=== PATIENT | male | born 1940 | race Caucasian/White ===

== ENCOUNTER 2019-02-28 14:46 | Inpatient (IN) ==
[2019-02-28] MEDS ORDERED: 0.9 % Sodium Chloride 1,000 ML IVC ONE ×2 (15:02)
[2019-02-28] MEDS ORDERED: 0.9 % Sodium Chloride 1,000 ML ONE (15:02)
[2019-02-28] MEDS ORDERED: Pantoprazole 40 MG VIAL IVP ONE (15:02)
[2019-02-28] MEDS ORDERED: Isovue-370 500 ML BOTTLE IVP ONE (15:02)
[2019-02-28] MEDS ORDERED: Ondansetron 4 MG/2 ML VIAL IVP ONE ×3 (15:03→21:44)
[2019-02-28 15:30] LABS: Prothrombin Time 11.3 Seconds (9.4-12.1)
[2019-02-28 15:48] LABS: Albumin/Globulin Ratio 1.3 (1.1-2.2); Bilirubin,Total 0.5 mg/dL (0.3-1.0); Calcium 11.7 mg/dL (8.6-10.3); Globulin 3.8 g/dL (2.4-3.5); Magnesium 2.7 mg/dL (1.6-2.6); Potassium 3.7 mEq/L (3.5-5.1); Total Protein 8.8 g/dL (6.4-8.9); Troponin I 0.03 ng/mL (< 0.04)
[2019-02-28] MEDS ORDERED: *HR* FentaNYL (PF) 100 MCG/2 ML VIAL IVP ONE (16:20)
[2019-02-28] MEDS ORDERED: Aspirin 325 MG TABLET PO ONE (16:22)
[2019-02-28 16:26] LABS: Basophils % 0.2 %; Eosinophils % 0.2 %; Hemoglobin 16.4 g/dL (12.9-16.9); Immature Granulocytes % 0.3 % (0-4); Lymphocytes # 0.6 K/mcL (0.6-4.6); Lymphocytes % 4.8 %; Mean Corpuscular HGB Conc 34.2 g/dL (31.6-35.5); Mean Corpuscular Hemoglobin 30.5 pg (28.0-33.3); Mean Corpuscular Volume 89.4 fL (83.0-100.0); Monocytes # 0.8 K/mcL (0.0-1.3); Monocytes % 6.5 %; Neutrophils # 10.3 K/mcL (1.6-8.9); Platelet Count 229 K/mcL (140-400); Red Blood Count 5.37 M/mcL (4.19-5.50); Red Cell Distribution Width 12.7 % (11.5-14.5); White Blood Count 11.7 K/mcL (4.3-11.1)
[2019-02-28] MEDS ORDERED: *HR* HYDROmorphone (PF) 1 MG/ML SYRINGE IVP ONE (18:53)
[2019-02-28] MEDS ORDERED: Acetaminophen 325 MG TABLET PO ONE (21:45)
[2019-02-28] MEDS ORDERED: Naloxone 0.4 MG/ML INJ IVP PRN (22:06)
[2019-02-28] MEDS ORDERED: Ondansetron 4 MG/2 ML VIAL IVP PRN (22:06)
[2019-02-28] MEDS ORDERED: Ringers Solution, Lactated 1,000 ML IVC SCH (22:15)
[2019-03-01 00:19] LABS: Basophils % 0.2 %; Lymphocytes # 0.3 K/mcL (0.6-4.6); Lymphocytes % 6.1 %; Mean Corpuscular Hemoglobin 30.8 pg (28.0-33.3); Mean Corpuscular Volume 88.1 fL (83.0-100.0); Mean Platelet Volume 10.9 fL (9.4-12.4); Monocytes # 0.4 K/mcL (0.0-1.3); Monocytes % 8.6 %; Neutrophils # 3.7 K/mcL (1.6-8.9); Platelet Count 180 K/mcL (140-400); Red Blood Count 4.77 M/mcL (4.19-5.50); Red Cell Distribution Width 12.7 % (11.5-14.5); Segmented Neutrophils % 85.1 %
[2019-03-01 00:21] LABS: Hemoglobin 14.7 g/dL (12.9-16.9); White Blood Count 4.4 K/mcL (4.3-11.1)
[2019-03-01 00:38] LABS: Albumin 3.8 g/dL (3.5-5.7); Albumin/Globulin Ratio 1.4 (1.1-2.2); Bilirubin,Total 0.4 mg/dL (0.3-1.0); Calcium 9.1 mg/dL (8.6-10.3); Globulin 2.7 g/dL (2.4-3.5); Potassium 4.1 mEq/L (3.5-5.1); Total Protein 6.5 g/dL (6.4-8.9)
[2019-03-01] MEDS: Pantoprazole 40 MG VIAL IVP SCH ×2 (05:41→17:43)
[2019-03-02 04:55] LABS: Hematocrit 39.4 % (37.5-50.1); Mean Corpuscular Hemoglobin 30.3 pg (28.0-33.3); Mean Corpuscular Volume 91.8 fL (83.0-100.0); Mean Platelet Volume 10.7 fL (9.4-12.4); Platelet Count 159 K/mcL (140-400); Red Blood Count 4.29 M/mcL (4.19-5.50); Red Cell Distribution Width 12.5 % (11.5-14.5); White Blood Count 5.7 K/mcL (4.3-11.1)
[2019-03-02 05:14] LABS: Calcium 8.8 mg/dL (8.6-10.3); Potassium 4.1 mEq/L (3.5-5.1)
[2019-03-02] MEDS: Pantoprazole 40 MG VIAL IVP SCH ×2 (05:38→17:54)
[2019-03-02] MEDS: Ringers Solution, Lactated 1,000 ML IVC SCH ×2 (05:57→17:54)
[2019-03-02] MEDS ORDERED: Ondansetron 4 MG/2 ML VIAL IVP ONE ×2 (08:44→20:52)
[2019-03-02] MEDS ORDERED: Clindamycin 600 MG/50 ML 600 MG/50 ML IV.SOLN IVPB ONE (17:59)
[2019-03-02] MEDS ORDERED: *HR* FentaNYL (PF) 100 MCG/2 ML VIAL ONE ×2 (20:51→21:42)
[2019-03-02] MEDS ORDERED: *HR* Propofol 200 MG/20 ML VIAL IVP ONE (20:51)
[2019-03-02] MEDS ORDERED: Ketorolac 30 MG/ML VIAL IVP ONE (20:52)
[2019-03-02] MEDS ORDERED: *HR* Succinylcholine 200 MG/10 ML VIAL IVP ONE (20:54)
[2019-03-02] MEDS ORDERED: Dexamethasone 4 MG/ML VIAL ONE ×2 (20:54→22:22)
[2019-03-02] MEDS ORDERED: *HR* Rocuronium Bromide 50 MG/5 ML VIAL ONE (20:54)
[2019-03-02] MEDS ORDERED: Lidocaine -MPF 4% 5 ML AMPUL ONE (20:55)
[2019-03-02] MEDS ORDERED: *HR* Midazolam HCl 2 MG/2 ML VIAL ONE (21:03)
[2019-03-02] MEDS ORDERED: Acetaminophen IV 1,000 MG/100 ML INFUS..BTL ONE (21:34)
[2019-03-02] MEDS ORDERED: Ondansetron 4 MG/2 ML VIAL ONE (22:22)
[2019-03-02] MEDS: *HR* HYDROmorphone (PF) 1 MG/ML SYRINGE IVP PRN ×3 (23:41→23:57)
[2019-03-02] MEDS: *HR* Promethazine 25 MG/ML VIAL IVP PRN (23:48)
[2019-03-03] MEDS: *HR* Promethazine 25 MG/ML VIAL IVP PRN
[2019-03-03] MEDS: *HR* HYDROmorphone (PF) 1 MG/ML SYRINGE IVP PRN (00:09)
[2019-03-03] MEDS ORDERED: Naloxone 0.4 MG/ML INJ IVP PRN (00:46)
[2019-03-03] MEDS: Ringers Solution, Lactated 1,000 ML IVC SCH (04:37)
[2019-03-03 05:22] LABS: Basophils % 0.1 %; Hematocrit 43.7 % (37.5-50.1); Hematocrit 44.2 % (37.5-50.1); Hemoglobin 14.3 g/dL (12.9-16.9); Hemoglobin 14.6 g/dL (12.9-16.9); Immature Granulocytes % 0.3 % (0-4); Lymphocytes # 0.4 K/mcL (0.6-4.6); Lymphocytes % 2.6 %; Mean Corpuscular HGB Conc 32.4 g/dL (31.6-35.5); Mean Corpuscular HGB Conc 33.4 g/dL (31.6-35.5); Mean Corpuscular Hemoglobin 30.5 pg (28.0-33.3); Mean Corpuscular Hemoglobin 30.7 pg (28.0-33.3); Mean Corpuscular Volume 91.4 fL (83.0-100.0); Mean Corpuscular Volume 94.8 fL (83.0-100.0); Mean Platelet Volume 11.2 fL (9.4-12.4); Monocytes # 1.3 K/mcL (0.0-1.3); Monocytes % 8.9 %; Platelet Count 186 K/mcL (140-400); Platelet Count 191 K/mcL (140-400); Red Blood Count 4.66 M/mcL (4.19-5.50); Red Blood Count 4.78 M/mcL (4.19-5.50); Red Cell Distribution Width 12.6 % (11.5-14.5); Segmented Neutrophils % 88.1 %; White Blood Count 13.5 K/mcL (4.3-11.1)
[2019-03-03 05:30] LABS: Neutrophils # 12.3 K/mcL (1.6-8.9)
[2019-03-03 05:40] LABS: Calcium 8.8 mg/dL (8.6-10.3); Phosphorous 4.8 mg/dL (2.7-4.5); Potassium 4.2 mEq/L (3.5-5.1)
[2019-03-03] MEDS: Ondansetron 4 MG/2 ML VIAL IVP PRN ×2 (05:40→23:05)
[2019-03-03] MEDS: Acetaminophen IV 1,000 MG/100 ML INFUS..BTL IVPB SCH ×4 (05:40→23:06)
[2019-03-03] MEDS: Pantoprazole 40 MG VIAL IVP SCH ×2 (05:40→16:14)
[2019-03-03] MEDS: Clindamycin 600 MG/50 ML 600 MG/50 ML IV.SOLN IVPB SCH ×3 (08:43→23:05)
[2019-03-04] MEDS: Ringers Solution, Lactated 1,000 ML IVC SCH ×5 (00:46→15:28)
[2019-03-04 04:53] LABS: Basophils % 0.2 %; Hematocrit 39.8 % (37.5-50.1); Immature Granulocytes % 0.3 % (0-4); Lymphocytes # 0.6 K/mcL (0.6-4.6); Lymphocytes % 4.7 %; Mean Corpuscular HGB Conc 32.7 g/dL (31.6-35.5); Mean Corpuscular Hemoglobin 29.9 pg (28.0-33.3); Mean Corpuscular Volume 91.5 fL (83.0-100.0); Mean Platelet Volume 11.6 fL (9.4-12.4); Monocytes # 0.6 K/mcL (0.0-1.3); Monocytes % 4.7 %; Neutrophils # 10.7 K/mcL (1.6-8.9); Platelet Count 166 K/mcL (140-400); Red Blood Count 4.35 M/mcL (4.19-5.50); Red Cell Distribution Width 12.9 % (11.5-14.5); Segmented Neutrophils % 90.1 %; White Blood Count 11.9 K/mcL (4.3-11.1)
[2019-03-04] MEDS: Pantoprazole 40 MG VIAL IVP SCH ×2 (04:59→17:05)
[2019-03-04] MEDS: Acetaminophen IV 1,000 MG/100 ML INFUS..BTL IVPB SCH ×3 (04:59→17:06)
[2019-03-04] MEDS: *HR* Heparin 5,000 UNIT/ML VIAL SQ SCH ×2 (05:00→17:05)
[2019-03-04 05:12] LABS: Calcium 8.8 mg/dL (8.6-10.3); Magnesium 2.1 mg/dL (1.6-2.6); Phosphorous 3.1 mg/dL (2.7-4.5); Potassium 4.2 mEq/L (3.5-5.1)
[2019-03-04 05:48] LABS: Platelet Estimate Normal (Normal); Reactive Lymphocytes Present (Not Present)
[2019-03-04] MEDS: Clindamycin 600 MG/50 ML 600 MG/50 ML IV.SOLN IVPB SCH ×3 (08:41→23:10)
[2019-03-04] MEDS: Ondansetron 4 MG/2 ML VIAL IVP PRN ×2 (09:40→20:02)
[2019-03-04] MEDS ORDERED: Prochlorperazine 10 MG/2 ML VIAL IVP PRN (10:48)
[2019-03-05] MEDS: Acetaminophen IV 1,000 MG/100 ML INFUS..BTL IVPB SCH ×4 (02:16→17:21)
[2019-03-05 03:02] LABS: Basophils % 0.1 %; Hematocrit 31.3 % (37.5-50.1); Immature Granulocytes % 1.7 % (0-4); Lymphocytes # 0.4 K/mcL (0.6-4.6); Lymphocytes % 4.3 %; Mean Corpuscular HGB Conc 32.9 g/dL (31.6-35.5); Mean Corpuscular Hemoglobin 30.1 pg (28.0-33.3); Mean Corpuscular Volume 91.5 fL (83.0-100.0); Mean Platelet Volume 11.3 fL (9.4-12.4); Monocytes # 0.4 K/mcL (0.0-1.3); Neutrophils # 8.1 K/mcL (1.6-8.9); Platelet Count 130 K/mcL (140-400); Red Blood Count 3.42 M/mcL (4.19-5.50); Red Cell Distribution Width 13.2 % (11.5-14.5); Segmented Neutrophils % 89.9 %
[2019-03-05 03:07] LABS: Hemoglobin 10.3 g/dL (12.9-16.9)
[2019-03-05 03:21] LABS: Calcium 8.3 mg/dL (8.6-10.3); Magnesium 2.1 mg/dL (1.6-2.6); Phosphorous 2.1 mg/dL (2.7-4.5); Potassium 3.9 mEq/L (3.5-5.1)
[2019-03-05 05:12] LABS: Platelet Estimate Slight Decrease (Normal)
[2019-03-05] MEDS: Pantoprazole 40 MG VIAL IVP SCH ×2 (06:25→17:18)
[2019-03-05] MEDS: *HR* Heparin 5,000 UNIT/ML VIAL SQ SCH (06:25)
[2019-03-05] MEDS: Ringers Solution, Lactated 1,000 ML IVC SCH ×4 (08:04→19:59)
[2019-03-05] MEDS: Clindamycin 600 MG/50 ML 600 MG/50 ML IV.SOLN IVPB SCH ×2 (08:08→16:29)
[2019-03-05 10:04] LABS: Hematocrit 29.8 % (37.5-50.1); Hemoglobin 9.8 g/dL (12.9-16.9)
[2019-03-05] MEDS ORDERED: D10% in Water 500 ML IVC PRN (11:35)
[2019-03-05] MEDS ORDERED: D5% in Water 1,000 ML IVC PRN (14:45)
[2019-03-05] MEDS ORDERED: *HR* Dextrose 50 % in Water (Syg) 50 ML SYRINGE IVP PRN (14:45)
[2019-03-05] MEDS ORDERED: Dextrose Gel 15 GM/37.5 ML TUBE PO PRN ×2 (14:45)
[2019-03-05] MEDS ORDERED: Lidocaine -MPF 1% 5 ML AMPUL INFILT ONE (14:47)
[2019-03-05 16:12] LABS: Hematocrit 32.4 % (37.5-50.1); Hemoglobin 10.3 g/dL (12.9-16.9)
[2019-03-05] MEDS ORDERED: Clinimix E 5%-15% SOLUTION 2,000 ML with MVI, adult with vitamin K 10 ML IVC SCH (17:00)
[2019-03-05] MEDS: Insulin LISPRO 300 UNITS/3 ML VIAL SQ SCH (18:24)
[2019-03-05 19:58] LABS: Bilirubin,Urine Negative (Negative); Blood,Urine Negative (Negative); Clarity,Urine Clear (Clear); Color,Urine Yellow (Yellow); Glucose,Urine (UA) Normal (Normal); Ketones,Urine Negative (Negative); Leukocyte Esterase,Urine Negative (Negative); Nitrite,Urine Negative (Negative); Protein,Urine 100 mg/dL (Neg-Trace); Specific Gravity,Urine 1.029 (1.010-1.025); Urobilinogen,Urine Normal (Normal)
[2019-03-05] MEDS: Ondansetron 4 MG/2 ML VIAL IVP PRN (19:58)
[2019-03-05 20:00] LABS: Bacteria,Urine None Seen per hpf (None-Few); Hyaline Casts,Urine None Seen per lpf (None-Few); Squamous Epithelial Cell,Urine Many per lpf (None-Few)
[2019-03-06] MEDS ORDERED: Albuterol 2.5 MG/3 ML NEBULIZER IH ONE (00:08)
[2019-03-06] MEDS: Insulin LISPRO 300 UNITS/3 ML VIAL SQ SCH ×7 (00:21→20:31)
[2019-03-06] MEDS: Clindamycin 600 MG/50 ML 600 MG/50 ML IV.SOLN IVPB SCH ×3 (00:29→16:25)
[2019-03-06] MEDS: Acetaminophen IV 1,000 MG/100 ML INFUS..BTL IVPB SCH ×4 (00:29→17:45)
[2019-03-06 03:41] LABS: Basophils % 0.2 %; Eosinophils % 0.3 %; Hematocrit 28.5 % (37.5-50.1); Hemoglobin 9.4 g/dL (12.9-16.9); Immature Granulocytes % 1.9 % (0-4); Lymphocytes # 0.4 K/mcL (0.6-4.6); Lymphocytes % 4.7 %; Mean Corpuscular Hemoglobin 30.4 pg (28.0-33.3); Mean Corpuscular Volume 92.2 fL (83.0-100.0); Mean Platelet Volume 11.4 fL (9.4-12.4); Monocytes # 0.5 K/mcL (0.0-1.3); Monocytes % 5.9 %; Neutrophils # 7.7 K/mcL (1.6-8.9); Nucleated Red Blood Cells 0.2 /100 WBC (0); Platelet Count 128 K/mcL (140-400); Red Blood Count 3.09 M/mcL (4.19-5.50); Red Cell Distribution Width 13.3 % (11.5-14.5); White Blood Count 8.9 K/mcL (4.3-11.1)
[2019-03-06] MEDS ORDERED: *HR* Metoprolol 5 MG/5 ML VIAL IVP ONE (03:41)
[2019-03-06 03:47] LABS: BUN/Creatinine Ratio 21 (6-26); Blood Urea Nitrogen 26 mg/dL (8-23); Calcium 8.4 mg/dL (8.6-10.3); Carbon Dioxide 25 mEq/L (23-29); Chloride 107 mEq/L (98-107); Glucose 137 mg/dL (70-105); Osmolality,Calculated 293 (280-300); Phosphorous 2.4 mg/dL (2.7-4.5); Potassium 3.7 mEq/L (3.5-5.1); Sodium 138 mEq/L (136-145); eGFR For African Americans > 60 (> 60); eGFR For Non-African Americans 58 (> 60)
[2019-03-06 04:47] LABS: Platelet Estimate Slight Decrease (Normal); Polychromasia 1+ (Not Present)
[2019-03-06] MEDS: Ondansetron 4 MG/2 ML VIAL IVP PRN (05:26)
[2019-03-06] MEDS: Pantoprazole 40 MG VIAL IVP SCH ×2 (05:26→17:17)
[2019-03-06] MEDS: Ringers Solution, Lactated 1,000 ML IVC SCH (10:48)
[2019-03-06] MEDS ORDERED: Perflutren Lipid Microsphere 1.3 ML in 0.9 % Sodium Chloride 8.7 ML IVP ONE (12:53)
[2019-03-06 14:03] LABS: Hematocrit 27.7 % (37.5-50.1)
[2019-03-06 14:04] LABS: Hemoglobin 9.1 g/dL (12.9-16.9)
[2019-03-06] MEDS ORDERED: Ringers Solution, Lactated 250 ML IVC ONE ×2 (15:18→15:45)
[2019-03-06] MEDS ORDERED: Clinimix E 5%-15% SOLUTION 2,000 ML with MVI, adult with vitamin K 10 ML IVC SCH (17:00)
[2019-03-07] MEDS: Acetaminophen IV 1,000 MG/100 ML INFUS..BTL IVPB SCH ×4 (01:16→18:10)
[2019-03-07] MEDS: Insulin LISPRO 300 UNITS/3 ML VIAL SQ SCH ×6 (01:16→20:25)
[2019-03-07] MEDS: Clindamycin 600 MG/50 ML 600 MG/50 ML IV.SOLN IVPB SCH ×3 (01:45→16:28)
[2019-03-07] MEDS: Ondansetron 4 MG/2 ML VIAL IVP PRN ×2 (02:26→20:19)
[2019-03-07 02:47] LABS: Troponin I 0.09 ng/mL (< 0.04)
[2019-03-07 04:18] LABS: Hematocrit 26.2 % (37.5-50.1); Hemoglobin 8.6 g/dL (12.9-16.9); Mean Corpuscular HGB Conc 32.8 g/dL (31.6-35.5); Mean Corpuscular Volume 91.3 fL (83.0-100.0); Mean Platelet Volume 10.9 fL (9.4-12.4); Platelet Count 141 K/mcL (140-400); Red Blood Count 2.87 M/mcL (4.19-5.50); Red Cell Distribution Width 13.4 % (11.5-14.5); White Blood Count 11.9 K/mcL (4.3-11.1)
[2019-03-07 04:33] LABS: BUN/Creatinine Ratio 21 (6-26); Blood Urea Nitrogen 24 mg/dL (8-23); Calcium 8.4 mg/dL (8.6-10.3); Carbon Dioxide 26 mEq/L (23-29); Chloride 106 mEq/L (98-107); Glucose 164 mg/dL (70-105); Osmolality,Calculated 298 (280-300); Phosphorous 2.7 mg/dL (2.7-4.5); Potassium 3.3 mEq/L (3.5-5.1); Sodium 140 mEq/L (136-145); eGFR For African Americans > 60 (> 60); eGFR For Non-African Americans > 60 (> 60)
[2019-03-07 04:49] LABS: Lymphocytes # 0.5 K/mcL (0.6-4.6); Monocytes # 0.5 K/mcL (0.0-1.3); Platelet Estimate Normal (Normal)
[2019-03-07] MEDS: Pantoprazole 40 MG VIAL IVP SCH ×2 (05:19→18:04)
[2019-03-07 06:50] LABS: Chol/HDL Ratio 9.5 (0-4.9); Cholesterol 105 mg/dL (< 200); HDL Cholesterol 11 mg/dL (40-59); Triglycerides 741 mg/dL (< 150)
[2019-03-07] MEDS ORDERED: Potassium Chloride 20 MEQ, Lidocaine 1% 2 ML in 0.9 % Sodium Chloride 250 ML IVPB ONE (08:34)
[2019-03-07] MEDS: Metoclopramide 20 MG in 0.9 % Sodium Chloride 50 ML IVPB SCH ×2 (09:14→16:28)
[2019-03-07 10:26] LABS: Hemoglobin 7.6 g/dL (12.9-16.9)
[2019-03-07] MEDS ORDERED: 0.9 % Sodium Chloride 250 ML IVC SCH (11:00)
[2019-03-07] MEDS: Ringers Solution, Lactated 1,000 ML IVC SCH (11:47)
[2019-03-07] MEDS ORDERED: Clinimix E 5%-15% SOLUTION 2,000 ML with MVI, adult with vitamin K 10 ML IVC SCH (17:00)
[2019-03-07] MEDS: *HR* Metoprolol 5 MG/5 ML VIAL IVP SCH (18:05)
[2019-03-07 18:22] LABS: Hematocrit 30.9 % (37.5-50.1)
[2019-03-07 18:24] LABS: Hemoglobin 10.6 g/dL (12.9-16.9)
[2019-03-07] MEDS ORDERED: Furosemide 20 MG/2 ML VIAL IVP ONE (19:22)
[2019-03-08] MEDS: Insulin LISPRO 300 UNITS/3 ML VIAL SQ SCH ×6 (00:02→20:29)
[2019-03-08] MEDS: Metoclopramide 20 MG in 0.9 % Sodium Chloride 50 ML IVPB SCH ×3 (00:06→17:03)
[2019-03-08] MEDS: *HR* Metoprolol 5 MG/5 ML VIAL IVP SCH ×4 (00:08→17:04)
[2019-03-08] MEDS: Clindamycin 600 MG/50 ML 600 MG/50 ML IV.SOLN IVPB SCH ×3 (00:09→15:47)
[2019-03-08] MEDS: Acetaminophen IV 1,000 MG/100 ML INFUS..BTL IVPB SCH ×5 (00:09→23:55)
[2019-03-08] MEDS ORDERED: Prochlorperazine 10 MG/2 ML VIAL IVP ONE (01:00)
[2019-03-08] MEDS: Pantoprazole 40 MG VIAL IVP SCH ×2 (05:57→17:04)
[2019-03-08] MEDS: Ondansetron 4 MG/2 ML VIAL IVP PRN ×2 (06:11→23:53)
[2019-03-08] MEDS: Ringers Solution, Lactated 1,000 ML IVC SCH (08:44)
[2019-03-08 09:24] LABS: Basophils % 0.2 %; Eosinophils % 0.2 %; Hematocrit 31.7 % (37.5-50.1); Hemoglobin 10.2 g/dL (12.9-16.9); Immature Granulocytes % 4.5 % (0-4); Lymphocytes # 0.4 K/mcL (0.6-4.6); Lymphocytes % 3.2 %; Mean Corpuscular HGB Conc 32.2 g/dL (31.6-35.5); Mean Corpuscular Hemoglobin 30.1 pg (28.0-33.3); Mean Corpuscular Volume 93.5 fL (83.0-100.0); Mean Platelet Volume 11.2 fL (9.4-12.4); Monocytes # 0.9 K/mcL (0.0-1.3); Monocytes % 6.8 %; Neutrophils # 11.1 K/mcL (1.6-8.9); Platelet Count 152 K/mcL (140-400); Red Blood Count 3.39 M/mcL (4.19-5.50); Segmented Neutrophils % 85.1 %
[2019-03-08 09:47] LABS: BUN/Creatinine Ratio 21 (6-26); Blood Urea Nitrogen 20 mg/dL (8-23); Calcium 8.7 mg/dL (8.6-10.3); Carbon Dioxide 27 mEq/L (23-29); Chloride 104 mEq/L (98-107); Glucose 163 mg/dL (70-105); Osmolality,Calculated 298 (280-300); Phosphorous 2.6 mg/dL (2.7-4.5); Potassium 3.3 mEq/L (3.5-5.1); Sodium 141 mEq/L (136-145); eGFR For African Americans > 60 (> 60); eGFR For Non-African Americans > 60 (> 60)
[2019-03-08 09:56] LABS: Platelet Estimate Normal (Normal)
[2019-03-08 10:07] LABS: Estimated Average Glucose 128 mg/dl
[2019-03-08] MEDS ORDERED: Potassium Chloride 40 MEQ, Lidocaine 1% 2 ML in 0.9 % Sodium Chloride 500 ML IVPB ONE (10:12)
[2019-03-08] MEDS ORDERED: *HR* Propofol 200 MG/20 ML VIAL IVP ONE (13:13)
[2019-03-08] MEDS ORDERED: Lidocaine -MPF 2% 2 ML VIAL ONE (13:13)
[2019-03-08] MEDS ORDERED: Lidocaine -MPF 4% 5 ML AMPUL ONE (14:12)
[2019-03-08] MEDS ORDERED: Dexamethasone 4 MG/ML VIAL ONE (14:35)
[2019-03-08] MEDS ORDERED: Ondansetron 4 MG/2 ML VIAL ONE (14:35)
[2019-03-08] MEDS ORDERED: Clinimix E 5%-15% SOLUTION 2,000 ML with MVI, adult with vitamin K 10 ML IVC SCH (17:00)
[2019-03-08] MEDS: *HR* Heparin 5,000 UNIT/ML VIAL SQ SCH (17:04)
[2019-03-08] MEDS ORDERED: Furosemide 20 MG/2 ML VIAL IVP ONE (17:20)
[2019-03-09] MEDS: Clindamycin 600 MG/50 ML 600 MG/50 ML IV.SOLN IVPB SCH ×3 (00:06→16:48)
[2019-03-09] MEDS: *HR* Metoprolol 5 MG/5 ML VIAL IVP SCH ×4 (00:07→16:51)
[2019-03-09] MEDS: Insulin LISPRO 300 UNITS/3 ML VIAL SQ SCH ×6 (00:07→21:08)
[2019-03-09 04:46] LABS: Basophils % 0.3 %; Eosinophils # 0.1 K/mcL (0.0-0.6); Eosinophils % 0.4 %; Hematocrit 30.1 % (37.5-50.1); Hemoglobin 9.9 g/dL (12.9-16.9); Lymphocytes # 0.5 K/mcL (0.6-4.6); Lymphocytes % 3.1 %; Mean Corpuscular HGB Conc 32.9 g/dL (31.6-35.5); Mean Corpuscular Hemoglobin 30.4 pg (28.0-33.3); Mean Corpuscular Volume 92.3 fL (83.0-100.0); Mean Platelet Volume 11.4 fL (9.4-12.4); Monocytes % 6.5 %; Neutrophils # 13.6 K/mcL (1.6-8.9); Platelet Count 166 K/mcL (140-400); Red Blood Count 3.26 M/mcL (4.19-5.50); Red Cell Distribution Width 13.9 % (11.5-14.5); Segmented Neutrophils % 87.7 %; White Blood Count 15.5 K/mcL (4.3-11.1)
[2019-03-09 05:04] LABS: Basophils # 0.1 K/mcL (0.0-0.2)
[2019-03-09 05:07] LABS: BUN/Creatinine Ratio 23 (6-26); Blood Urea Nitrogen 19 mg/dL (8-23); Calcium 8.3 mg/dL (8.6-10.3); Carbon Dioxide 24 mEq/L (23-29); Chloride 106 mEq/L (98-107); Glucose 141 mg/dL (70-105); Magnesium 2.2 mg/dL (1.6-2.6); Osmolality,Calculated 291 (280-300); Phosphorous 2.9 mg/dL (2.7-4.5); Potassium 3.4 mEq/L (3.5-5.1); Sodium 138 mEq/L (136-145); eGFR For African Americans > 60 (> 60); eGFR For Non-African Americans > 60 (> 60)
[2019-03-09] MEDS: Pantoprazole 40 MG VIAL IVP SCH (05:27)
[2019-03-09] MEDS: Acetaminophen IV 1,000 MG/100 ML INFUS..BTL IVPB SCH (05:27)
[2019-03-09] MEDS: *HR* Heparin 5,000 UNIT/ML VIAL SQ SCH ×2 (05:27→16:55)
[2019-03-09 06:30] LABS: Platelet Estimate Normal (Normal)
[2019-03-09] MEDS ORDERED: Furosemide 20 MG/2 ML VIAL IVP ONE (10:42)
[2019-03-09] MEDS ORDERED: Clinimix E 5%-15% SOLUTION 2,000 ML with MVI, adult with vitamin K 10 ML IVC SCH ×2 (11:48→17:00)
[2019-03-09 16:50] LABS: Bilirubin,Urine Negative (Negative); Blood,Urine Negative (Negative); Clarity,Urine Clear (Clear); Color,Urine Yellow (Yellow); Glucose,Urine (UA) Normal (Normal); Ketones,Urine Negative (Negative); Leukocyte Esterase,Urine Negative (Negative); Nitrite,Urine Negative (Negative); Protein,Urine Trace mg/dL (Neg-Trace); Specific Gravity,Urine 1.018 (1.010-1.025); Urobilinogen,Urine Normal (Normal)
[2019-03-10] MEDS: Clindamycin 600 MG/50 ML 600 MG/50 ML IV.SOLN IVPB SCH ×3 (00:38→16:32)
[2019-03-10] MEDS: *HR* Metoprolol 5 MG/5 ML VIAL IVP SCH ×4 (00:39→17:19)
[2019-03-10] MEDS: Insulin LISPRO 300 UNITS/3 ML VIAL SQ SCH ×6 (00:40→19:40)
[2019-03-10 04:29] LABS: Hematocrit 28.8 % (37.5-50.1); Hemoglobin 9.8 g/dL (12.9-16.9); Mean Corpuscular Hemoglobin 30.1 pg (28.0-33.3); Mean Corpuscular Volume 88.3 fL (83.0-100.0); Mean Platelet Volume 11.3 fL (9.4-12.4); Platelet Count 212 K/mcL (140-400); Red Blood Count 3.26 M/mcL (4.19-5.50); Red Cell Distribution Width 13.9 % (11.5-14.5); White Blood Count 18.4 K/mcL (4.3-11.1)
[2019-03-10 04:46] LABS: BUN/Creatinine Ratio 26 (6-26); Blood Urea Nitrogen 22 mg/dL (8-23); Calcium 8.2 mg/dL (8.6-10.3); Carbon Dioxide 26 mEq/L (23-29); Chloride 103 mEq/L (98-107); Glucose 139 mg/dL (70-105); Magnesium 2.1 mg/dL (1.6-2.6); Osmolality,Calculated 292 (280-300); Phosphorous 3.1 mg/dL (2.7-4.5); Potassium 3.5 mEq/L (3.5-5.1); Sodium 138 mEq/L (136-145); eGFR For African Americans > 60 (> 60); eGFR For Non-African Americans > 60 (> 60)
[2019-03-10] MEDS: *HR* Heparin 5,000 UNIT/ML VIAL SQ SCH ×2 (05:06→17:19)
[2019-03-10] MEDS: Pantoprazole 40 MG VIAL IVP SCH ×2 (05:06→08:08)
[2019-03-10 05:16] LABS: Lymphocytes # 1.1 K/mcL (0.6-4.6); Monocytes # 0.4 K/mcL (0.0-1.3); Neutrophils # 16.9 K/mcL (1.6-8.9)
[2019-03-10 05:18] LABS: Platelet Estimate Normal (Normal)
[2019-03-10] MEDS ORDERED: Furosemide 20 MG/2 ML VIAL IVP ONE (08:23)
[2019-03-10] MEDS: Ondansetron 4 MG/2 ML VIAL IVP PRN ×2 (08:58→19:45)
[2019-03-10] MEDS: chlorproMAZINE 25 MG TABLET PO SCH ×2 (14:21→19:41)
[2019-03-10] MEDS ORDERED: Furosemide 40 MG/4 ML VIAL IVP ONE (15:00)
[2019-03-10] MEDS ORDERED: Clinimix E 5%-15% SOLUTION 2,000 ML with MVI, adult with vitamin K 10 ML IVC SCH (17:00)
[2019-03-10] MEDS ORDERED: chlorproMAZINE 25 MG TABLET PO SCH (21:00)
[2019-03-10] MEDS: Acetaminophen 325 MG TABLET PO PRN (22:56)
[2019-03-11] MEDS: Insulin LISPRO 300 UNITS/3 ML VIAL SQ SCH ×6 (00:14→21:53)
[2019-03-11] MEDS: *HR* Heparin 5,000 UNIT/ML VIAL SQ SCH ×2 (05:24→17:49)
[2019-03-11 05:39] LABS: Basophils % 0.1 %; Eosinophils # 0.1 K/mcL (0.0-0.6); Eosinophils % 0.9 %; Hematocrit 19.8 % (37.5-50.1); Hemoglobin 6.3 g/dL (12.9-16.9); Immature Granulocytes % 1.5 % (0-4); Lymphocytes # 0.5 K/mcL (0.6-4.6); Lymphocytes % 3.6 %; Mean Corpuscular HGB Conc 31.8 g/dL (31.6-35.5); Mean Corpuscular Hemoglobin 30.4 pg (28.0-33.3); Mean Corpuscular Volume 95.7 fL (83.0-100.0); Mean Platelet Volume 11.4 fL (9.4-12.4); Monocytes # 0.9 K/mcL (0.0-1.3); Monocytes % 6.6 %; Neutrophils # 12.1 K/mcL (1.6-8.9); Platelet Count 164 K/mcL (140-400); Red Blood Count 2.07 M/mcL (4.19-5.50); Red Cell Distribution Width 14.1 % (11.5-14.5); Segmented Neutrophils % 87.3 %; White Blood Count 13.9 K/mcL (4.3-11.1)
[2019-03-11] MEDS: Acetaminophen 325 MG TABLET PO PRN (05:59)
[2019-03-11 08:16] LABS: Basophils % 0.2 %; Eosinophils # 0.1 K/mcL (0.0-0.6); Eosinophils % 0.6 %; Hematocrit 29.3 % (37.5-50.1); Immature Granulocytes % 1.6 % (0-4); Lymphocytes # 0.5 K/mcL (0.6-4.6); Lymphocytes % 2.9 %; Mean Corpuscular HGB Conc 32.8 g/dL (31.6-35.5); Mean Corpuscular Hemoglobin 29.7 pg (28.0-33.3); Mean Corpuscular Volume 90.7 fL (83.0-100.0); Mean Platelet Volume 11.5 fL (9.4-12.4); Monocytes # 1.3 K/mcL (0.0-1.3); Monocytes % 6.9 %; Neutrophils # 16.5 K/mcL (1.6-8.9); Platelet Count 233 K/mcL (140-400); Red Blood Count 3.23 M/mcL (4.19-5.50); Red Cell Distribution Width 13.8 % (11.5-14.5); Segmented Neutrophils % 87.8 %; White Blood Count 18.8 K/mcL (4.3-11.1)
[2019-03-11 08:18] LABS: Hemoglobin 9.6 g/dL (12.9-16.9)
[2019-03-11 08:43] LABS: BUN/Creatinine Ratio 27 (6-26); Blood Urea Nitrogen 27 mg/dL (8-23); Carbon Dioxide 26 mEq/L (23-29); Chloride 99 mEq/L (98-107); Glucose 160 mg/dL (70-105); Osmolality,Calculated 287 (280-300); Phosphorous 3.3 mg/dL (2.7-4.5); Sodium 134 mEq/L (136-145); eGFR For African Americans > 60 (> 60); eGFR For Non-African Americans > 60 (> 60)
[2019-03-11] MEDS: chlorproMAZINE 25 MG TABLET PO SCH ×2 (09:31→19:52)
[2019-03-11] MEDS ORDERED: Baclofen 10 MG TABLET PO SCH (12:00)
[2019-03-11] MEDS ORDERED: Baclofen 10 MG TABLET PO PRN (12:45)
[2019-03-11] MEDS ORDERED: Clinimix E 5%-15% SOLUTION 2,000 ML with MVI, adult with vitamin K 10 ML IVC SCH (17:00)
[2019-03-12] MEDS: Insulin LISPRO 300 UNITS/3 ML VIAL SQ SCH ×5 (00:23→17:35)
[2019-03-12 03:55] LABS: Hematocrit 27.1 % (37.5-50.1); Hemoglobin 8.8 g/dL (12.9-16.9); Mean Corpuscular HGB Conc 32.5 g/dL (31.6-35.5); Mean Corpuscular Hemoglobin 29.7 pg (28.0-33.3); Mean Corpuscular Volume 91.6 fL (83.0-100.0); Mean Platelet Volume 11.3 fL (9.4-12.4); Platelet Count 305 K/mcL (140-400); Red Blood Count 2.96 M/mcL (4.19-5.50); Red Cell Distribution Width 13.7 % (11.5-14.5); White Blood Count 18.7 K/mcL (4.3-11.1)
[2019-03-12 04:13] LABS: BUN/Creatinine Ratio 28 (6-26); Blood Urea Nitrogen 27 mg/dL (8-23); Carbon Dioxide 25 mEq/L (23-29); Chloride 97 mEq/L (98-107); Glucose 145 mg/dL (70-105); Magnesium 2.1 mg/dL (1.6-2.6); Osmolality,Calculated 278 (280-300); Phosphorous 3.3 mg/dL (2.7-4.5); Sodium 130 mEq/L (136-145); eGFR For African Americans > 60 (> 60); eGFR For Non-African Americans > 60 (> 60)
[2019-03-12] MEDS: *HR* Heparin 5,000 UNIT/ML VIAL SQ SCH ×2 (06:58→17:44)
[2019-03-12] MEDS ORDERED: Isovue-370 500 ML BOTTLE IVP ONE ×2 (07:21)
[2019-03-12] MEDS: chlorproMAZINE 25 MG TABLET PO SCH (08:29)
[2019-03-12] MEDS ORDERED: Isovue-370 500 ML BOTTLE PO ONE (09:15)
[2019-03-12] MEDS ORDERED: Piperacillin/Tazobactam 3.375 GM in 0.9 % Sodium Chloride Mini Bag 100 ML IVPB SCH (12:00)
[2019-03-12 12:15] LABS: Amylase 44 Units/L (29-103); Lipase 26 Units/L (11-82)
[2019-03-12] MEDS ORDERED: Clinimix E 5%-15% SOLUTION 2,000 ML, Parenteral Amino Acid 10% 150 ML with MVI, adult ... IVC SCH (17:00)
[2019-03-12 18:41] VITALS: BP 106/61
[2019-03-12] MEDS ORDERED: Aminoglycoside Consult 1 EACH MC ONE (21:21)
[2019-03-13] MEDS ORDERED: Clinimix E 5%-15% SOLUTION 2,000 ML, Parenteral Amino Acid 10% 150 ML with MVI, adult ... IVC SCH (17:00)
[2019-03-14] MEDS ORDERED: Clinimix E 5%-15% SOLUTION 2,000 ML, Parenteral Amino Acid 10% 150 ML with MVI, adult ... IVC SCH (17:00)
== END 2019-03-12 21:22 | disposition short-term general hospital (02) | DRG 853 ==
LOC: EMEROOARM 14:46 → 3ANU 14:46 → 3NENU 14:46 → OBSVTOIN 20:14 → SUATTDRO 20:14 → 3NENU 21:08 → 3ANU 03-01 14:59
PROVIDERS: ADMIT Internal Medicine; ATTEND Internal Medicine